=== PATIENT | male | born 1950 | race American Indian/Alaskan Native ===

== ENCOUNTER 2019-08-26 07:49 | Day surgery (SDC) | payer MEDICARE, OTHER ==
[~2019-08-26 07:49] MED LIST: SODIUM CHLORIDE 0.9% 1000 ML 1,000 ML IV SCH
[2019-08-26] MEDS ORDERED: WATER FOR IRRIG STERILE 250 ML BOTTLE IR ONE (08:19)
[2019-08-26] MEDS ORDERED: propofoL 200 MG/20 ML VIAL IV ONE ×2 (09:09)
--- NOTE | 2019-08-26 09:13 | Anesthesia Consultation ---
Anesthesia Consult and Med Hx Date of service: 08/26/19 - Airway Anesthetic Teeth Evaluation: Good ROM Head & Neck: Adequate Mental/Hyoid Distance: Adequate Mallampati Class: Class II Intubation Access Assessment: Good - Pre-Operative Health Status ASA Pre-Surgery Classification: ASA2 Proposed Anesthetic Plan: MAC - Pulmonary Hx Pneumonia: Yes (History of PNA, last episode in late May with hospitalization.) - Cardiovascular System Hx Heart Murmur: Yes - Endocrine Hx Non-Insulin Dependent Diabetes: Yes - Hematic Hx Sickle Cell Disease: No (Sickle cell trait)
--- NOTE | 2019-08-26 09:14 | Anesthesia Day of Surgery ---
Anesthesia Day of Surgery - Day of Surgery Patient Examined: Yes Patient H&P Reviewed: Yes Patient is NPO: Yes
--- NOTE | 2019-08-26 10:13 | Procedure Note ---
Date of procedure: 08/26/19 Pre-op diagnosis: Dysphagia and Colon Polyp Screening Post-op diagnosis: other (Mild, Benign Esophageal Stenosis/ R/O Eosinophilc Esophagitis/Mild Distal Esophagitis/Gastritis/ No Colon Polyps/Solitary,Small Left Diverticuli/Minor Internal Hemorrhoid) Procedure: EGD with biopsy and s/p Esophageal, Balloon dilation (20 mm balloon) and Colonoscopy Anesthesia: MAC Surgeon: MARTINA EUGENE Estimated blood loss: minimal Pathology: list Specimen disposition: to lab Condition: stable Disposition: same day (Treat with PPI and encourage fiber intake and avoid aspirina nd NSAID for 5 days, otherwise resume home medication. follow up in1 to 2 weeks ([phone]).)
--- NOTE | 2019-08-26 10:14 | Operative Report ---
PROCEDURE: EGD with biopsy and esophageal balloon dilation. INDICATIONS: This is a 68-year-old -[place] gentleman who has a family history of cancer. Mother had ovarian cancer. Uncle had prostate cancer. He is to have a colonoscopy done. EGD was also done because of complaints of dysphagia. DESCRIPTION OF PROCEDURE: The procedure was done after getting informed consent with MAC anesthesia. Instrument was passed through the hypopharynx into the esophagus, which showed some mild distal esophagitis. Biopsy was done from the distal as well as from the midesophagus to rule out eosinophilic esophagitis and at the end of the procedure, the distal esophagus was dilated with a 20 mm balloon that was maintained for a minute. The stomach showed gastritis. Biopsy was done from the gastric antrum, gastric body and angular incisura. There was a slightly raised area in the antrum, which was also biopsied, which may have been a lipoma. The pylorus was patent. The duodenum in the first and second portion appeared normal. There was minimal bleeding associated with the procedure. No complications associated with the procedure. ASSESSMENT: Dysphagia, mild benign esophageal stenosis, status post balloon dilation with a 20 mm balloon, rule out eosinophilic esophagitis, mild distal esophagitis, gastritis. PLAN: To treat the patient with PPI, have the patient avoid aspirin and aspirin-related products for the next few days. Follow up in the office in 1-2 weeks' time and to do a colonoscopy as part of colon polyp screening. Procedure was done in the GI lab with assistance of the GI lab team, which included INOCENTE Tabor and Иван pantoja as well as with anesthesia. JOB# [id number] PURA/ANN
[2019-08-26 10:52] VITALS: BP 122/78
--- NOTE | 2019-08-26 12:18 | Operative Report ---
PROCEDURE: Colonoscopy. INDICATIONS: The patient is a 68-year-old -[place] male who had an EGD done prior to the colonoscopy. EGD showed presence of mild benign esophageal stenosis, status post dilation as well as gastritis and esophagitis. Colonoscopy was done as part of colon polyp screening. DESCRIPTION OF PROCEDURE: Initial rectal exam was unremarkable. Instrument was passed through the rectum onto the cecum, which was identified with ileocecal valve and the appendiceal orifice. Visualization was fair to good. Cecum, ascending colon, transverse colon showed normal mucosa. There were a solitary small minor diverticula noted in the left colon. Remaining part of the left colon showed normal mucosa and the rectum showed minor internal hemorrhoid on the retroverted view. There were no biopsies done. No bleeding associated with the colonoscopy and no polyps noted. ASSESSMENT: Colon polyp screening, solitary. Minor left colon diverticula. No colon polyps. Minor internal hemorrhoid. PLAN: To encourage the patient to take fiber supplements, avoid aspirin and aspirin-related products because of biopsy done during the EGD. The patient will be treated with PPI because of the EGD findings and also resume home medication. Follow up in the office in 1-2 weeks' time. The procedure was done in the GI lab with assistance of the GI lab team, which included kit Braxton and with assistance of anesthesia. JOB# [id number] PURA/ANN
--- NOTE | 2019-08-26 19:23 | Post Anesthesia Evaluation ---
- Post Anesthesia Evaluation Patient Participated: Yes Airway Patent: Yes Stable Respiratory Function: Yes Nausea/Vomiting: No Temp > 96.8F: Yes Pain Manageable: Yes Adequeate Hydration: Yes Anesthesia Complications: No Block Receding Appropriately: Not Applicable Patient on Ventilator: No
== END 2019-08-26 07:50 | disposition home or self-care (01) ==
LOC: GIO 07:49
DX: Z12.11 Encounter for screening for malignant neoplasm of colon (principal); K30 Functional dyspepsia; K64.8 Other hemorrhoids; K57.30 Diverticulosis of large intestine without perforation or abscess without bleeding; K22.2 Esophageal obstruction; K29.70 Gastritis, unspecified, without bleeding; K31.89 Other diseases of stomach and duodenum; J44.9 Chronic obstructive pulmonary disease, unspecified; E11.9 Type 2 diabetes mellitus without complications; Z80.0 Family history of malignant neoplasm of digestive organs; Z80.42 Family history of malignant neoplasm of prostate; Z80.41 Family history of malignant neoplasm of ovary; Z79.899 Other long term (current) drug therapy; Z79.84 Long term (current) use of oral hypoglycemic drugs; Z98.890 Other specified postprocedural states
CPT/HCPCS: 43239; 43249; 45378; 82962; 88305; 88342; C1726; J2704; J7030